=== PATIENT | female | born 1930 | race African-American/Black ===

== ENCOUNTER → 2018-02-10 | Outpatient (CLI) | payer MEDICARE, MEDICAID ==
--- NOTE | 2018-02-06 14:10 | Pre-Procedure Note/Attestation ---
Pre-Procedure Note/Attestation Complete Prior to Procedure Planned Procedure: right Procedure Narrative: phaco with IOL Indications for Procedure Pre-Operative Diagnosis: cataract Attestation I attest that I discussed the nature of the procedure; its benefits; risks and complications; and alternatives (and the risks and benefits of such alternatives ), prior to the procedure, with the patient (or the patient's legal freight representative). I attest that, if there was a reasonable possibility of needing a blood transfusion, the patient (or the patient's legal freight representative) was given the [facility] standardized written summary, pursuant to the [employer]ld[employer] Herr[place] Blood Safety Act ([place] Health and Safety Code # 1645, as amended). I attest that I re-evaluated the patient just prior to the surgery and that there has been no change in the patient's H&P, except as documented below: MIKA BLAIR Feb 06, 2018 14:10
--- NOTE | 2018-02-06 14:12 | Opthalmology H&P ---
Ophthalmology H&P H&P Chief Complaint: decreased vision in right eye HPI Vision Affects Ability to: read, focus/use eyes together, manage personal affairs HPI Narrative blurry vision Exam Visual Acuity: OD: HM OS: 20/30 Tension: OD: 10 OS: 14 Eye Exam: normal OU: external exam, palpebral fissure-width, marginal reflex distance, levator function, corneas, anterior chambers, findings: lens - OD: dense OS: PCO, fundus exam - increased CD Assessment/Plan Diagnosis: (1) Mature cataract Treatment Plan: cataract extraction w/ lens implant Goals of Treatment: improvement of vision, enhance quality of life Attestation Attestation The risks and benefits of the surgery as well as alternative procedures were explained to the patient in detail. MIKA BLAIR Feb 06, 2018 14:12
[~2018-02-10] VITALS: Ht 30.5 cm; Wt 0.5 kg
[~2018-02-10] MED LIST: AMLODIPINE BESY10 MG ORAL; ASPIR-LOW81 MG ORAL; Akten 3.5% 1ml Btl RIGHT EYE ONE; CALCITROL PO; CARVEDILOL25 MG ORAL; CLARITIN10 M2 ORAL; Cyclopentolate 1% Opth Sol 2ml RIGHT EYE SCH; Diclofenac Sod 0.1% Op Soln RIGHT EYE SCH; FOLIC ACID1 MG ORAL; JANUVIA100 MG ORAL; Ketorolac Tromethamine Opth 5ml Soln RIGHT EYE SCH; LIPITOR40 MG ORAL; METFORMIN HCL1000 M1 ORAL; Phenylephrine 10% Opth Soln 5ml RIGHT EYE SCH; Proparacaine 0.5% Opth Soln 15ml RIGHT EYE ONE; STARLIX120 MG ORAL; TRAMADOL HCL50 MG ORAL; Tetracaine 0.5% Opth 4ml Soln RIGHT EYE ONE; Tobramycin Op Soln 0.3% 5ml RIGHT EYE SCH; Tropicamide 1% Opth 15ml Soln RIGHT EYE SCH; VALSARTAN-HCTZ1 EAC2 ORAL; ZETIA10 MG ORAL
[2018-02-10 07:01] LABS: BASOPHILS % (AUTO) 0.7 % (0.0-2.0); HEMOGLOBIN 11.5 G/DL (12.0-16.0); LYMPHOCYTES % (AUTO) 16.3 % (20.0-45.0); MEAN CORPUSCULAR VOLUME 91 FL (80-99); MONOCYTES % (AUTO) 8.8 % (1.0-10.0); NEUTROPHILS % (AUTO) 71.3 % (45.0-75.0); PLATELET COUNT 209 K/UL (150-450); RED BLOOD COUNT 3.74 M/UL (4.20-5.40); RED CELL DISTRIBUTION WIDTH 11.9 % (11.6-14.8); WHITE BLOOD COUNT 6.7 K/UL (4.8-10.8)
[2018-02-10 07:33] LABS: ALANINE AMINOTRANSFERASE 12 U/L (12-78); ALBUMIN 3.6 G/DL (3.4-5.0); ALBUMIN/GLOBULIN RATIO 0.8 (1.0-2.7); ALKALINE PHOSPHATASE 81 U/L (46-116); ANION GAP 8 mmol/L (5-15); ASPARTATE AMINO TRANSFERASE 14 U/L (15-37); BILIRUBIN,TOTAL 0.6 MG/DL (0.2-1.0); BLOOD UREA NITROGEN 28 mg/dL (7-18); CALCIUM 9.6 MG/DL (8.5-10.1); CARBON DIOXIDE 29 MMOL/L (21-32); CHLORIDE 103 MMOL/L (98-107); CREATININE 1.4 MG/DL (0.55-1.30); POTASSIUM 3.9 MMOL/L (3.5-5.1); SODIUM 140 MMOL/L (136-145)
== END | disposition home or self-care (01) ==
LOC: LAB 08:00 → EDSTATUS 08:30
DX: H26.9 Unspecified cataract (principal)
CPT/HCPCS: 36415; 80053; 85025; 85610; 85730